=== PATIENT | female | born 1970 | race Caucasian/White ===

== ENCOUNTER → 2019-07-29 | Outpatient (CLI) | payer OTHER ==
[~2019-07-29] MED LIST: DEXILANT30 MG
--- NOTE | 2019-07-29 14:39 | Diagnostic Imaging Report ---
EXAM: US THYROID DATE: 07/29/2019 1:41 PM INDICATION: Thyroid nodules COMPARISON: 07/10/2016 FINDINGS: The right thyroid lobe is normal in size measuring 4.5 x 1.2 x 2.0 cm. There are multiple, grossly stable appearing thyroid nodules as below: - 0.9 x 0.6 x 0.7 cm isoechoic solid nodule within the mid right lobe. - 1.0 x 0.6 x 1.0 cm isoechoic solid nodule within the inferior right lobe. - 0.7 x 0.3 x 0.5 cm anechoic/cystic nodule within the lateral right thyroid lobe. - 0.8 x 0.7 x 0.7 cm isoechoic solid nodule within the mid right thyroid lobe. The isthmus measures 3 mm and appears unremarkable. The left thyroid lobe is normal in size measuring 4.3 x 1.3 x 1.6 cm. There are multiple grossly stable appearing thyroid nodules as below: - 1.0 x 0.8 x 0.8 cm isoechoic solid nodule within the superior/mid left thyroid lobe. - 1.3 x 0.7 x 1.1 cm isoechoic solid nodule within the mid left thyroid lobe. - 0.4 x 0.3 x 0.4 cm hypoechoic nodule within the superior left lobe. -1.3 x 0.6 x 1.0 cm isoechoic solid nodule within the inferior left thyroid lobe. Thyroid vascularity is within normal limits. IMPRESSION: Grossly stable appearing thyroid containing bilateral predominantly subcentimeter nodules. The dominant nodules within each lobe are unchanged in size/appearance. Signed by: Dr. Cesar Steven MD on 07/29/2019 2:36 PM
== END ==
LOC: US 13:36
PROVIDERS: ATTEND Otolaryngology
DX: E04.2 Nontoxic multinodular goiter (principal)
CPT/HCPCS: 76536

== ENCOUNTER → 2019-07-31 | Day surgery (SDC) | payer OTHER ==
[~2019-07-31] MED LIST changes: +FENTANYL CITRATE/PF 100MCG/2 ML INJ ONE; +LIDOCAINE HCL 2% LOCAL INJ 5 ML SDV VIAL INJ ONE; +MIDAZOLAM HCL 2 MG/2 ML VIAL ONE; +PROPOFOL IV EMULSION 10 MG/ML 50 ML VIAL ONE
--- OUTSIDE RECORDS SUMMARY | 2019-07-31 12:53 | XMS REPORT ---
Author Author [facility] Address Unknown Phone Unavailable Care Team Providers Care Form Raiser Name Role Phone [facility] Unavailable Unavailable Problems This patient has no known problems. Allergies, Adverse Reactions, Alerts This patient has no known allergies or adverse reactions. Medications This patient has no known medications. Results Test Description Test Time Test Comments Text Results Atomic Results Result Comments THYROID 2019-07-29 14:28:00 [place] [address] Patient Name: SELMA LAMBERT MR #: [id number] : 1970 Age/Sex: 49/F Req #: [id number] [facility] Physician: Ordered by: AKOSUA DHALIWAL, TORRES DHALIWAL Report #: [id number] Location: Room/Bed: Procedure: [id number] US/US THYROID Exam Date: 07/29/19 Exam Time: 1354 REPORT STATUS: Signed EXAM: US THYROID DATE: 07/29/2019 1:41 PM INDICATION: Th yroid nodules COMPARISON: 07/10/2016 FINDINGS: The right thyroid lobe is normal in size measuring 4.5 x 1.2 x 2.0 cm. There are multiple, grossly stable appearing thyroid nodules as below: - 0.9 x 0.6 x 0.7 cm isoechoic solid nodule within the mid right lobe. - 1.0 x 0.6 x 1.0 cm isoechoic solid nodule within the inferior right lobe. - 0.7 x 0.3 x 0.5 cm anechoic/cystic nodule within the lateral right thyroid lobe. - 0.8 x 0.7 x 0.7 cm isoechoic solid nodule within the mid right thyroid lobe. The isthmus measures 3 mm and appears unremarkable. The left thyroid lobe is normal in size measuring 4.3 x 1.3 x 1.6 cm. There are multiple grossly stable appearing thyroid nodules as below: - 1.0 x 0.8 x 0.8 cm isoechoic solid nodule within the superior/mid left thyroid lobe. - 1.3 x 0.7 x 1.1 cm isoechoic solid nodule within the mid left thyroid lobe. - 0.4 x 0.3 x 0.4 cm hypoechoic nodule within the superior left lobe. -1.3 x 0.6 x 1.0 cm isoechoic solid nodule within the inferior left thyroid lobe. Thyroid vascularity is within normal limits. IMPRESSION: Grossly stable appearing thyroid containing bilateral predominantly subcentimeter nodules. The dominant nodules within each lobe are unchanged in size/appearance. Signed by: Dr. Cesar Steven MD on 07/29/2019 2:36 PM Dictated By: CESAR STEVEN MD [id number] Transcribed By: NELSON on 07/29/19 1436 COPY TO: [facility] MAMM BILATERAL EUGENIO CAD DIGITAL 2019-07-22 16:56:27 - SCR MAMM BILATERAL EUGENIO CAD DIGITALBILATERAL DIGITAL SCREENING MAMMOGRAM 3D/2D WITH CAD: 07/21/2019CLINICAL: Asymptomatic. Digital breast tomosynthesis was performed in addition to routine CC and MLO views. Current mammographic images were evaluated by either a [employer] M-Vu or a goBalto ImageChecker CAD (computer aided detection system). Comparison is made to exams dated 07/19/2018 mammogram, 07/17 mammogram, and 07/07/2016 mammogram - [facility]-. There are scattered fibroglandular tissues in both breasts. There is a benign calcification in the right breast. There also is a stable benign focal asymmetry in the lateral left breast. No suspicious new mass, architectural distortion, malignant type calcification, or lymph node abnormality detected. Breast architecture is stable compared to prior exams.IMPRESSION: BENIGNThere is no mammographic evidence of malignancy. Resume annual screening mammography in one year. John Paul Feliciano M.D. rb/:07/22/2019 16:56:27 Senior Asic Engineer: Corina FELIX, [facility]-FWletter sent: BIRADS 1-2 Normal Mammogram BI-RADS: 2 Benign
[2019-07-31 16:05] VITALS: BP 115/78
--- NOTE | 2019-07-31 22:34 | Operative Report ---
DATE OF PROCEDURE: 07/31/2019 SURGEON: Sam Cat MD PROCEDURE: EGD with biopsies. INDICATIONS FOR EGD: Upper abdominal pain. MEDICATIONS: The patient was done under MAC, please see anesthesiologist's note. PROCEDURE IN DETAIL: With the patient in the left lateral decubitus position, a flexible fiberoptic Olympus gastroscope was introduced into the esophagus under direct visualization without any difficulty. There were some patchy erythema noted in distal esophagus. The scope was then advanced with ease into the stomach and mucosa overlying the antrum and the body revealed some diffuse erythema and low-grade to moderate edema. Biopsies were obtained and sent to stain for H pylori. Several gastric polyps, hyperplastic appearing were noted in the stomach and some were partially excised with the cold biopsy forceps. The pylorus was of normal contour and shape, it was intubated with ease and the scope was advanced all the way to the second portion of the duodenum. The scope was then withdrawn slowly and mucosa overlying the proximal second portion and duodenal bulb were grossly unremarkable. Biopsies were obtained to rule out sprue. The scope was then withdrawn back into the stomach and retroflexed and mucosa overlying the fundus and the cardia appeared to be within normal limits. The scope was then straightened out, it was subsequently withdrawn. The patient tolerated the procedure well. IMPRESSION: 1. Mild distal esophagitis. 2. Gastritis, biopsied. Biopsies sent to stain for Helicobacter pylori. 3. Gastric polyps, some were partially excised with the cold biopsy forceps. 4. Rule out sprue. PLAN: Follow up histology. Initiate Protonix 40 mg one p.o. q.a.m. before meals and Carafate 1 g p.o. before meals t.i.d. and at bedtime. Sam Cat MD [facility] /[id number] cc: Maliha Knox
== END | disposition home or self-care (01) ==
LOC: OR 12:51
PROVIDERS: ATTEND Internal Medicine Gastroenterology
DX: K29.50 Unspecified chronic gastritis without bleeding (principal); K31.7 Polyp of stomach and duodenum; K21.9 Gastro-esophageal reflux disease without esophagitis; K20.9 Esophagitis, unspecified; K58.9 Irritable bowel syndrome, unspecified; K44.9 Diaphragmatic hernia without obstruction or gangrene; R03.0 Elevated blood-pressure reading, without diagnosis of hypertension; Z01.810 Encounter for preprocedural cardiovascular examination; Z68.31 Body mass index [BMI] 31.0-31.9, adult
CPT/HCPCS: 43239; 81025; 93005; J2001; J2250; J2704; J3010

== ENCOUNTER 2022-10-11 08:56 | Outpatient (RCR) | payer OTHER ==
[~2022-10-11 08:56] MED LIST changes: -FENTANYL CITRATE/PF 100MCG/2 ML INJ ONE; -LIDOCAINE HCL 2% LOCAL INJ 5 ML SDV VIAL INJ ONE; -MIDAZOLAM HCL 2 MG/2 ML VIAL ONE; -PROPOFOL IV EMULSION 10 MG/ML 50 ML VIAL ONE
== END 2022-10-25 ==
LOC: OT 08:56
PROVIDERS: ATTEND Specialist
DX: S69.92XA Unspecified injury of left wrist, hand and finger(s), initial encounter (principal)